=== PATIENT | female | born 2000 | race Hispanic/Latino ===

== ENCOUNTER 2018-06-20 13:09 | Emergency (ER) | payer OTHER ==
[~2018-06-20] VITALS: Ht 160 cm; Wt 81.2 kg
--- OUTSIDE RECORDS SUMMARY | 2018-06-20 13:12 | XMS REPORT | Continuity of Care Document ---
Author Author [facility] Interface Address Unknown Phone Unavailable Problems Problem Status Onset Date Classification Date Reported Comments Source CHOLEDOCHOLITHIASIS Active 07/22/2017 [facility] ABDOMINAL PAIN Active 07/22/2017 [facility] ABD PAIN Active 07/19/2017 [facility] Abdominal pain 06/19/2017 06/22/2017 [facility] Cholelithiasis 06/19/2017 06/22/2017 [facility] CALCULUS OF BILE DUCT W/O CHOLANGITIS OR Active [facility] Medications Medication Details Route Status Patient Instructions Ordering Provider Order Date Source tramadol hydrochloride 50 MG Oral Tablet 50 mg=1 tab, PO, Q6H, PRN Pain Score 6-10, X 10 day, # 30 tab, 0 Refill(s) Active 07/26/2017 [facility] POLYETHYLENE GLYCOL 3350 142 MG/ML Oral Solution [Miralax] 17 gm, PO, Daily, X 15 day, # 255 gm, 0 Refill(s) Active 07/26/2017 [facility] naproxen 500 mg oral tablet 500 mg=1 tab, PO, [id number], X 14 day, # 28 tab, 0 Refill(s) Active 07/26/2017 [facility] Docusate Sodium 100 MG Oral Capsule 100 mg=1 cap, PO, BID, # 28 cap, 0 Refill(s) Active 07/26/2017 [facility] Acetaminophen 325 MG Oral Tablet 650 mg=2 tab, PO, Q6H, X 14 day, # 112 tab, 0 Refill(s) Active 07/26/2017 [facility] PlasmaLyte A PH-7.4 1,000 mL 1,000 mL, Rate: 75 ml/hr, Infuse over: 13.3 hr, Route: IV, Dosing Weight 71.8 kg, Total Volume: 1,000, Start date: 07/26/17 7:32:00 CDT, Duration: 30 day, Stop date: 08/25/17 7:31:00 CDT, 1.81, [id number]: (Same as: Isolyte S PH 7.4) Inactive 07/26/2017 [facility] Ondansetron 4 mg, 2 mL, Route: IV, Drug form: INJ, Q4H, Dosing Weight 71.8, kg, PRN as needed for nausea/vomiting, Start date: 07/25/17 14:47:00 CDT, Duration: 30 day, Stop date: 08/24/17 14:46:00 CDTNotes: (Same a s: Lane) MEDICATION WASTE Product Size: 4 mg Product Wasted: ___ mg No Longer Active 07/25/2017 [facility] Ondansetron 4 mg, Route: IVP, ONCE, Dosing Weight 71.8, kg, PRN Nausea & Vomiting, Start date: 07/25/17 9:32:00 CDT Inactive 07/25/2017 [facility] Promethazine 6.25 mg, 0.25 mL, Route: IVPB, Drug form: INJ, ONCE, Dosing Weight 71.8, kg, PRN Nausea & Vomiting, Start date: 07/25/17 9:32:00 CDTNotes: Do not give IV push. (Same as: Phenergan) Inactive 07/25/2017 [facility] Naloxone 0.4 mg, 1 mL, Route: IVP, Drug form: INJ, Q2MIN, Dosing Weight 71.8, kg, PRN Narcotic Reversal, Start date: 07/25/17 9:32:00 CDT, Duration: 8 doses or times, Stop date: 07/26/17 0:00:00 CDTNotes: Same as Narcan Inactive 07/25/2017 [facility] Oxycodone 5 mg, 1 tab, Route: PO, Drug form: TAB, Q4H, Dosing Weight 71.8, kg, PRN Pain Score 4-6, Start date: 07/25/17 9:32:00 CDT, Stop date: 07/26/17 0:00:00 CDTNotes: (Same as: Roxicodone) Inactive 07/25/2017 [facility] Flumazenil 0.2 mg, 2 mL, Route: IVP, Drug form: INJ, PRN, Dosing Weight 71.8, kg, PRN Benzodiazepine Reversal, Initial dose, Start date: 07/25/17 9:32:00 CDT, Stop date: 07/26/17 0:00:00 CDTNotes: (Same as: Romazicon) Inactive 07/25/2017 [facility] ondansetron (ANES) Route: IV, Drug form: INJ, ONCE, Stop date: 07/25/17 9:22:00 CDT Inactive 07/25/2017 [facility] ketOROLAC (ANES) IV, ONCE Inactive 07/25/2017 [facility] glycopyrrolate (ANES) Route: IV, Drug form: INJ, ONCE, Stop date: 07/25/17 9:22:00 CDT Inactive 07/25/2017 [facility] neostigmine ([facility]) Route: IV, Drug form: INJ, ONCE, Stop date: 07/25/17 9:22:00 CDT Inactive 07/25/2017 [facility] fentaNYL (ANES) Route: IV, Drug form: INJ, ONCE, Stop date: 07/25/17 8:52:00 CDT Inactive 07/25/2017 [facility] dexamethasone (ANES) Route: IV, Drug form: INJ, ONCE, Stop date: 07/25/17 8:52:00 CDT Inactive 07/25/2017 [facility] lidocaine (ANES) Route: IV, Drug form: INJ, ONCE, Stop date: 07/25/17 8:51:00 CDT Inactive 07/25/2017 [facility] midazolam (ANES) Route: IV, Drug form: SOLN, ONCE, Stop date: 07/25/17 8:51:00 CDT Inactive 07/25/2017 [facility] rocuronium (ANES) Route: IV, Drug form: INJ, ONCE, Stop date: 07/25/17 8:51:00 CDT Inactive 07/25/2017 [facility] propofol (ANES) Route: IV, Drug form: INJ, ONCE, Stop date: 07/25/17 8:51:00 CDT Inactive 07/25/2017 [facility] ceFAZolin ([facility]) Route: IV, Drug form: INJ, ONCE, Stop date: 07/25/17 8:46:00 CDT Inactive 07/25/2017 [facility] Lactated Ringers Injection IV (ANES) 1000 mL Route: IV, Total Volume: 1,000, Start date: 07/25/17 7:43:00 CDT, Stop date: 07/25/17 8:43:00 CDT Inactive 07/25/2017 [facility] Indocin 100 mg, 2 supp, Route: NV, Drug form: SUPP, ONCE, Dosing Weight 71.8, kg, Priority: STAT, Start date: 07/24/17 11:07:00 CDT, Stop date: 07/24/17 11:07:00 CDTNotes: (Same as: Indocin) Inactive 07/24/2017 [facility] Calcium Chloride 0.0014 MEQ/ML / Potassium Chloride 0.004 MEQ/ML / Sodium Chloride 0.103 MEQ/ML / Sodium Lactate 0.028 MEQ/ML Injectable Solution 2,000 mL, 2,000 ml/hr, Infuse Over: 2 hr, Route: IV, ONCE, Priority: STAT, Dosing Weight 71.8 kg, Start date: 07/24/17 10:34:00 CDT, Stop date: 07/24/17 10:34:00 CDT Inactive 07/24/2017 [facility] Indocin 100 mg, 4 cap, Route: NV, Drug form: CAP, ONCE, Dosing Weight 71.8, kg, Priority: STAT, Start date: 07/24/17 10:34:00 CDT, Stop date: 07/24/17 10:34:00 CDTNotes: (Same as: Indocin) Take with food Inactive 07/24/2017 [facility] Calcium Chloride 0.0014 MEQ/ML / Potassium Chloride 0.004 MEQ/ML / Sodium Chloride 0.103 MEQ/ML / Sodium Lactate 0.028 MEQ/ML Injectable Solution 1,000 mL, 1000 ml/hr, Infuse Over: 1 hr, Route: IV, 1,000, Drug form: INJ, ONCE, Dosing Weight 71 kg, Start date: 07/24/17 9:59:00 CDT, Stop date: 07/24/17 9:59:00 CDT Inactive 07/24/2017 [facility] Calcium Chloride 0.0014 MEQ/ML / Potassium Chloride 0.004 MEQ/ML / Sodium Chloride 0.103 MEQ/ML / Sodium Lactate 0.028 MEQ/ML Injectable Solution 1,000 mL, 1,000 ml/hr, Infuse Over: 1 hr, Route: IV, 1,000, Drug form: INJ, ONCE, Priority: STAT, Dosing Weight 71 kg, Start date: 07/24/17 9:50:00 CDT, Stop date: 07/24/17 9:50:00 CDT Inactive 07/24/2017 [facility] Acetaminophen 650 mg, 2 tab, Route: PO, Drug form: TAB, Q4H, Dosing Weight 71.818, kg, Start date: 07/22/17 20:00:00 CDT, Duration: 30 day, Stop date: 08/21/17 16:00:00 CDTNotes: Do not exceed 4 gm/day. (Same as: Tylenol) No Longer Active 07/23/2017 [facility] Lovenox 40 mg, 0.4 mL, Route: SUB-Q, Drug form: INJ, [id number], Dosing Weight 71.818, kg, Start date: 07/22/17 20:00:00 CDT, Duration: 30 day, Stop date: 08/20/17 20:00:00 CDTNotes: (Same as: Lovenox) No Longer Active 07/23/2017 [facility] Docusate 100 mg, 1 cap, Route: PO, Drug form: CAP, BID, Dosing Weight 71.818, kg, Start date: 07/22/17 19:12:00 CDT, Duration: 30 day, Stop date: 08/21/17 17:00:00 CDTNotes: (Same as: Colace) (Do Not Crush) No Longer Active 07/23/2017 [facility] Morphine 4 mg, 1 mL, Route: IVP, Drug form: SOLN, Q4H, Dosing Weight 71.818, kg, PRN Pain Score 7-10, Start date: 07/22/17 19:06:00 CDT, Duration: 30 day, Stop date: 08/21/17 19:05:00 CDTNotes: (Same as:MORPhine Sulfate) No Longer Active 07/23/2017 [facility] Acetaminophen 650 mg, 2 tab, Route: PO, Drug form: TAB, Q4H, Dosing Weight 71.818, kg, PRN Pain 1-3/Temp > 100.4 F, Start date: 07/22/17 19:06:00 CDT, Duration: 30 day, Stop date: 08/21/17 19:05:00 CDTNotes: Do not exceed 4 gm/day. (Same as: Tylenol) Inactive 07/23/2017 [facility] Naproxen 500 mg, 1 tab, Route: PO, Drug form: TAB, [id number], Dosing Weight 71.818, kg, Start date: 07/22/17 19:06:00 CDT, Duration: 30 day, Stop date: 08/21/17 7:06:00 CDTNotes: (Same as: Naprosyn) Take with food. No Longer Active 07/23/2017 [facility] PlasmaLyte A PH-7.4 1,000 mL 1,000 mL, Rate: 75 ml/hr, Infuse over: 13.3 hr, Route: IV, Dosing Weight 71.818 kg, Total Volume: 1,000, Start date: 07/22/17 19:05:00 CDT, Stop date: 08/21/17 19:04:00 CDT, 1.81, [id number]: (Same as: Isolyte S PH 7.4) No Longer Active 07/23/2017 [facility] Cephalexin 500 MG Oral Capsule [Keflex] 500 mg=1 cap, PO, BID, X 10 day, # 20 cap, 0 Refill(s) Active 06/19/2017 [facility] Ondansetron 4 MG Oral Tablet [Zofran] 4 mg=1 tab, PO, BID, # 10 tab, 0 Refill(s) Active 06/19/2017 [facility] tramadol hydrochloride 50 MG Oral Tablet 50 mg=1 tab, PO, BID, X 12 day, # 24 tab, 0 Refill(s) Active 06/19/2017 [facility] Metoclopramide 10 mg, Route: IVP, Drug form: INJ, ONCE, Dosing Weight 71.364, kg, Priority: STAT, Start date: 06/19/17 4:09:00 CDT, Stop date: 06/19/17 4:09:00 CDT Inactive 06/19/2017 [facility] Hydromorphone 1 mg, Route: IVP, ONCE, Dosing Weight 71.364, kg, Priority: STAT, Start date: 06/19/17 4:09:00 CDT, Stop date: 06/19/17 4:09:00 CDT Inactive 06/19/2017 [facility] GI cocktail 30 mL, Route: PO, Dosing Weight 71.364, kg, ONCE, STAT, Start date: 06/19/17 2:41:00 CDT, Stop date: 06/19/17 2:41:00 CDT Inactive 06/19/2017 [facility] Acetaminophen 325 MG / Hydrocodone Bitartrate 5 MG Oral Tablet 1 tab, Route: PO, Drug Form: TAB, Dosing Weight 71.364, kg, ONCE, STAT, Start date: 06/19/17 2:41:00 CDT, Stop date: 06/19/17 2:41:00 CDT Inactive 06/19/2017 [facility] Zofran 4 mg, Route: PO, Drug form: TABDIS, ONCE, Dosing Weight 71.364, kg, Priority: STAT, Start date: 06/19/17 2:41:00 CDT, Stop date: 06/19/17 2:41:00 CDT Inactive 06/19/2017 [facility] Allergies, Adverse Reactions, Alerts Substance Category Reaction Severity Reaction type Status Date Reported Comments Source Immunizations Immunization Date Given Site Status Last Updated Comments Source Results Order Name Results Value Reference Range Date Interpretation Comments Source CHEM PANEL Albumin Lvl 3.5 g/dL 3.5 - 5.0 07/25/2017 [facility] CHEM PANEL Globulin 3.6 g/dL 2.7 - 4.2 07/25/2017 [facility] CHEM PANEL A/G Ratio 1.0 0.7 - 1.6 07/25/2017 [facility] CHEM PANEL AST 106 unit/L 0 - 37 07/25/2017 [facility] CHEM PANEL Alk Phos 307 unit/L 39 - 136 07/25/2017 [facility] CHEM PANEL Bili Total 2.5 mg/dL 0.2 - 1.3 07/25/2017 [facility] CHEM PANEL Bili Direct 1.2 mg/dL 0.0 - 0.3 07/25/2017 [facility] CHEM PANEL Bili Indirect 1.3 mg/dL 0.0 - 1.0 07/25/2017 [facility] CHEM PANEL ALT 427 unit/L 0 - 65 07/25/2017 [facility] CHEM PANEL Total Protein 7.1 g/dL 6.4 - 8.4 07/25/2017 [facility] ELECTROLYTES AGAP 10.9 meq/L 10.0 - 20.0 07/25/2017 [facility] ELECTROLYTES eGFR 144 mL/min/1.73m2 07/25/2017 Result Comment: The eGFR is calculated using the CKD-EPI formula. In most young, healthy individuals the eGFR will be >90 mL/min/1.73m2. The eGFR declines with age. An eGFR of 60-89 may be normal in some populations, particularly the elderly, for whom the CKD-EPI formula has not been extensively validated. Use of the eGFR is not recommended in the following populations: Individuals with unstable creatinine concentrations, including patients and those with serious co-morbid conditions. Patients with extremes in muscle mass or diet. The data above are obtained from the National Kidney Disease Education Program (NKDEP) which additionally recommends that when the eGFR is used in patients with extremes of body mass index for purposes of drug dosing, the eGFR should be multiplied by the estimated BMI. [facility] ELECTROLYTES Calcium Lvl 9.2 mg/dL 8.5 - 10.5 07/25/2017 [facility] ELECTROLYTES Potassium Lvl 3.9 meq/L 3.5 - 5.1 07/25/2017 [facility] ELECTROLYTES Sodium Lvl 138 meq/L 135 - 145 07/25/2017 [facility] ELECTROLYTES Creatinine Lvl 0.47 mg/dL 0.50 - 1.40 07/25/2017 [facility] ELECTROLYTES CO2 25 meq/L 24 - 32 07/25/2017 [facility] ELECTROLYTES Chloride Lvl 106 meq/L 95 - 109 07/25/2017 [facility] ELECTROLYTES BUN 9 mg/dL 7 - 22 07/25/2017 [facility] ELECTROLYTES Glucose Lvl 75 mg/dL 70 - 99 07/25/2017 [facility] HEMATOLOGY Eosinophils # 0.1 K/CMM 0.0 - 0.5 07/25/2017 [facility] HEMATOLOGY Monocytes # 0.6 K/CMM 0.0 - 0.8 07/25/2017 [facility] HEMATOLOGY Monocytes 10.1 % 2.0 - 12.0 07/25/2017 [facility] HEMATOLOGY Lymphocytes 45.5 % 20.0 - 40.0 07/25/2017 [facility] HEMATOLOGY Segs 41.8 % 45.0 - 75.0 07/25/2017 [facility] HEMATOLOGY Lymphocytes # 2.5 K/CMM 1.0 - 5.5 07/25/2017 [facility] HEMATOLOGY Segs-Bands # 2.3 K/CMM 1.5 - 8.1 07/25/2017 [facility] HEMATOLOGY Basophils 0.3 % 0.0 - 1.0 07/25/2017 [facility] HEMATOLOGY Eosinophils 2.3 % 0.0 - 4.0 07/25/2017 [facility] HEMATOLOGY MCH 26.1 pg 27.0 - 31.0 07/25/2017 [facility] HEMATOLOGY MCV 79.0 fL 80.0 - 98.0 07/25/2017 [facility] HEMATOLOGY Hct 37.3 % 36.0 - 48.0 07/25/2017 [facility] HEMATOLOGY MPV 9.9 fL 7.4 - 10.4 07/25/2017 [facility] HEMATOLOGY Hgb 12.3 g/dL 12.0 - 16.0 07/25/2017 [facility] HEMATOLOGY RBC 4.71 M/CMM 4.20 - 5.40 07/25/2017 [facility] HEMATOLOGY WBC 5.6 K/CMM 3.7 - 10.4 07/25/2017 [facility] HEMATOLOGY Platelet 246 K/CMM 133 - 450 07/25/2017 [facility] HEMATOLOGY RDW 16.0 % 11.5 - 14.5 07/25/2017 [facility] HEMATOLOGY MCHC 33.0 g/dL 32.0 - 36.0 07/25/2017 [facility] BLOOD BANK RESULTS Antibody Scrn Negative (07/24/17 5:23 AM) 07/24/2017 [facility] BLOOD BANK RESULTS ABO/Rh A POS 07/24/2017 [facility] CHEM PANEL A/G Ratio 0.8 0.7 - 1.6 07/24/2017 [facility] CHEM PANEL Globulin 3.7 g/dL 2.7 - 4.2 07/24/2017 [facility] CHEM PANEL Bili Indirect 1.8 mg/dL 0.0 - 1.0 07/24/2017 [facility] CHEM PANEL Total Protein 6.8 g/dL 6.4 - 8.4 07/24/2017 [facility] CHEM PANEL ALT 470 unit/L 0 - 65 07/24/2017 [facility] CHEM PANEL Albumin Lvl 3.1 g/dL 3.5 - 5.0 07/24/2017 [facility] CHEM PANEL Alk Phos 358 unit/L 39 - 136 07/24/2017 [facility] CHEM PANEL AST 164 unit/L 0 - 37 07/24/2017 [facility] CHEM PANEL Bili Direct 4.7 mg/dL 0.0 - 0.3 07/24/2017 [facility] CHEM PANEL Bili Total 6.5 mg/dL 0.2 - 1.3 07/24/2017 [facility] CHEM PANEL Calcium Lvl 9.2 mg/dL 8.5 - 10.5 07/24/2017 [facility] CHEM PANEL CO2 24 meq/L 24 - 32 07/24/2017 [facility] CHEM PANEL Glucose Lvl 82 mg/dL 70 - 99 07/24/2017 [facility] CHEM PANEL Sodium Lvl 141 meq/L 135 - 145 07/24/2017 [facility] CHEM PANEL Creatinine Lvl 0.48 mg/dL 0.50 - 1.40 07/24/2017 [facility] CHEM PANEL BUN 6 mg/dL 7 - 22 07/24/2017 [facility] CHEM PANEL Chloride Lvl 109 meq/L 95 - 109 07/24/2017 [facility] CHEM PANEL Potassium Lvl 4.3 meq/L 3.5 - 5.1 07/24/2017 [facility] CHEM PANEL eGFR 142 mL/min/1.73m2 07/24/2017 Result Comment: The eGFR is calculated using the CKD-EPI formula. In most young, healthy individuals the eGFR will be >90 mL/min/1.73m2. The eGFR declines with age. An eGFR of 60-89 may be normal in some populations, particularly the elderly, for whom the CKD-EPI formula has not been extensively validated. Use of the eGFR is not recommended in the following populations: Individuals with unstable creatinine concentrations, including patients and those with serious co-morbid conditions. Patients with extremes in muscle mass or diet. The data above are obtained from the National Kidney Disease Education Program (NKDEP) which additionally recommends that when the eGFR is used in patients with extremes of body mass index for purposes of drug dosing, the eGFR should be multiplied by the estimated BMI. [facility] CHEM PANEL AGAP 12.3 meq/L 10.0 - 20.0 07/24/2017 [facility] HEMATOLOGY Lymphocytes # 1.9 K/CMM 1.0 - 5.5 07/24/2017 [facility] HEMATOLOGY Monocytes # 0.7 K/CMM 0.0 - 0.8 07/24/2017 [facility] HEMATOLOGY Segs-Bands # 3.4 K/CMM 1.5 - 8.1 07/24/2017 [facility] HEMATOLOGY Eosinophils # 0.1 K/CMM 0.0 - 0.5 07/24/2017 [facility] HEMATOLOGY Microcyte 1+ *ABN* (07/24/17 5:23 AM) None Seen 07/24/2017 [facility] HEMATOLOGY Monocytes 11.8 % 2.0 - 12.0 07/24/2017 [facility] HEMATOLOGY Eosinophils 2.2 % 0.0 - 4.0 07/24/2017 [facility] HEMATOLOGY Basophils 0.2 % 0.0 - 1.0 07/24/2017 [facility] HEMATOLOGY Segs 55.3 % 45.0 - 75.0 07/24/2017 [facility] HEMATOLOGY Lymphocytes 30.5 % 20.0 - 40.0 07/24/2017 [facility] HEMATOLOGY Hct 36.4 % 36.0 - 48.0 07/24/2017 [facility] HEMATOLOGY MCH 26.3 pg 27.0 - 31.0 07/24/2017 [facility] HEMATOLOGY MCHC 33.6 g/dL 32.0 - 36.0 07/24/2017 [facility] HEMATOLOGY MCV 78.2 fL 80.0 - 98.0 07/24/2017 [facility] HEMATOLOGY RDW 15.9 % 11.5 - 14.5 07/24/2017 [facility] HEMATOLOGY WBC 6.1 K/CMM 3.7 - 10.4 07/24/2017 [facility] HEMATOLOGY RBC 4.65 M/CMM 4.20 - 5.40 07/24/2017 [facility] HEMATOLOGY Hgb 12.2 g/dL 12.0 - 16.0 07/24/2017 [facility] HEMATOLOGY MPV 9.2 fL 7.4 - 10.4 07/24/2017 [facility] HEMATOLOGY Platelet 243 K/CMM 133 - 450 07/24/2017 [facility] ERCP Diagnostic DX ERCP Diagnostic DX EXAM: FLUOROSCOPY ERCP DATE: 07/24/2017 10:55 AM CDT INDICATION: - ERCP ADDITIONAL INFORMATION: Filling defect noted in main distal bile duct. Biliary sphincterotomy was performed. Using a 9-12 mm balloon stone extractor the bile duct was swept One large stone, multiple fragments and sludge removed. No further stones/sludge removed on repeated balloon COMPARISON: Liver ultrasound 07/22/2017. TECHNIQUE: Three images where provided by gastroenterology for interpretation. FLUOROSCOPY TIME: 0.4 minutes. FINDINGS: ERCP performed by GI. Filling defects visualized within the common bile duct. IMPRESSION: 1. Balloon sweep of common bile duct to remove biliary stones. 2. Please see complete ERCP report for more details and recommendations. 07/24/2017 - - Read by: Neal Nichols MD Dictated Date/time: 07/24/17 11:32 Electronically Signed by: Neal Nichols MD 07/24/17 11:36 FINAL REPORT [facility] CHEM PANEL eGFR 144 mL/min/1.73m2 07/23/2017 Result Comment: The eGFR is calculated using the CKD-EPI formula. In most young, healthy individuals the eGFR will be >90 mL/min/1.73m2. The eGFR declines with age. An eGFR of 60-89 may be normal in some populations, particularly the elderly, for whom the CKD-EPI formula has not been extensively validated. Use of the eGFR is not recommended in the following populations: Individuals with unstable creatinine concentrations, including patients and those with serious co-morbid conditions. Patients with extremes in muscle mass or diet. The data above are obtained from the National Kidney Disease Education Program (NKDEP) which additionally recommends that when the eGFR is used in patients with extremes of body mass index for purposes of drug dosing, the eGFR should be multiplied by the estimated BMI. [facility] CHEM PANEL Chloride Lvl 108 meq/L 95 - 109 07/23/2017 [facility] CHEM PANEL BUN 9 mg/dL 7 - 22 07/23/2017 [facility] CHEM PANEL Glucose Lvl 68 mg/dL 70 - 99 07/23/2017 [facility] CHEM PANEL Calcium Lvl 8.7 mg/dL 8.5 - 10.5 07/23/2017 [facility] CHEM PANEL AGAP 16.0 meq/L 10.0 - 20.0 07/23/2017 [facility] CHEM PANEL CO2 18 meq/L 24 - 32 07/23/2017 [facility] CHEM PANEL Potassium Lvl 4.0 meq/L 3.5 - 5.1 07/23/2017 [facility] CHEM PANEL Creatinine Lvl 0.47 mg/dL 0.50 - 1.40 07/23/2017 [facility] CHEM PANEL Sodium Lvl 138 meq/L 135 - 145 07/23/2017 [facility] CHEM PANEL Lipase Lvl 112 unit/L 73 - 393 07/23/2017 [facility] CHEM PANEL Total Protein 6.7 g/dL 6.4 - 8.4 07/23/2017 [facility] CHEM PANEL AST 138 unit/L 0 - 37 07/23/2017 [facility] CHEM PANEL Alk Phos 325 unit/L 39 - 136 07/23/2017 [facility] CHEM PANEL Bili Total 5.5 mg/dL 0.2 - 1.3 07/23/2017 [facility] CHEM PANEL Albumin Lvl 3.4 g/dL 3.5 - 5.0 07/23/2017 [facility] CHEM PANEL ALT 430 unit/L 0 - 65 07/23/2017 [facility] CHEM PANEL Bili Direct 4.0 mg/dL 0.0 - 0.3 07/23/2017 [facility] CHEM PANEL Bili Indirect 1.5 mg/dL 0.0 - 1.0 07/23/2017 [facility] CHEM PANEL Globulin 3.3 g/dL 2.7 - 4.2 07/23/2017 [facility] CHEM PANEL A/G Ratio 1.0 0.7 - 1.6 07/23/2017 [facility] HEMATOLOGY MCHC 33.0 g/dL 32.0 - 36.0 07/23/2017 [facility] HEMATOLOGY MCH 25.9 pg 27.0 - 31.0 07/23/2017 [facility] HEMATOLOGY MPV 9.3 fL 7.4 - 10.4 07/23/2017 [facility] HEMATOLOGY RDW 15.7 % 11.5 - 14.5 07/23/2017 [facility] HEMATOLOGY Platelet 260 K/CMM 133 - 450 07/23/2017 [facility] HEMATOLOGY Hgb 12.6 g/dL 12.0 - 16.0 07/23/2017 [facility] HEMATOLOGY Hct 38.2 % 36.0 - 48.0 07/23/2017 [facility] HEMATOLOGY WBC 6.6 K/CMM 3.7 - 10.4 07/23/2017 [facility] HEMATOLOGY RBC 4.87 M/CMM 4.20 - 5.40 07/23/2017 [facility] HEMATOLOGY MCV 78.4 fL 80.0 - 98.0 07/23/2017 [facility] HEMATOLOGY Microcyte 1+ *ABN* (07/23/17 2:51 AM) None Seen 07/23/2017 [facility] HEMATOLOGY Eosinophils # 0.1 K/CMM 0.0 - 0.5 07/23/2017 [facility] HEMATOLOGY Monocytes # 0.7 K/CMM 0.0 - 0.8 07/23/2017 [facility] HEMATOLOGY Monocytes 11.1 % 2.0 - 12.0 07/23/2017 [facility] HEMATOLOGY Lymphocytes 35.1 % 20.0 - 40.0 07/23/2017 [facility] HEMATOLOGY Segs 51.9 % 45.0 - 75.0 07/23/2017 [facility] HEMATOLOGY Segs-Bands # 3.5 K/CMM 1.5 - 8.1 07/23/2017 [facility] HEMATOLOGY Lymphocytes # 2.3 K/CMM 1.0 - 5.5 07/23/2017 [facility] HEMATOLOGY Basophils 0.2 % 0.0 - 1.0 07/23/2017 [facility] HEMATOLOGY Eosinophils 1.7 % 0.0 - 4.0 07/23/2017 [facility] IMMUNOLOGY Hep Bs Ag Negative *NA* (07/23/17 2:51 AM) Negative 07/23/2017 [facility] IMMUNOLOGY Hep C Ab Negative *NA* (07/23/17 2:51 AM) 07/23/2017 [facility] IMMUNOLOGY Hep A IgM Negative *NA* (07/23/17 2:51 AM) Negative 07/23/2017 [facility] IMMUNOLOGY Hep B Core IgM Negative *NA* (07/23/17 2:51 AM) Negative 07/23/2017 [facility] HEMATOLOGY PT 12.7 s 12.0 - 14.7 07/22/2017 [facility] HEMATOLOGY INR 0.95 0.85 - 1.17 07/22/2017 [facility] HEMATOLOGY PTT 28.2 s 22.9 - 35.8 07/22/2017 [facility] BLOOD BANK RESULTS Antibody Scrn Negative (07/22/17 6:00 PM) 07/22/2017 [facility] BLOOD BANK RESULTS ABO/Rh A POS 07/22/2017 [facility] CHEM PANEL Lipase Lvl 149 unit/L 73 - 393 07/22/2017 [facility] HEMATOLOGY Microcyte 1+ *ABN* (07/22/17 1:50 PM) None Seen 07/22/2017 [facility] URINE AND STOOL UA Glucose Negative (07/22/17 1:50 PM) Negative 07/22/2017 [facility] URINE AND STOOL UA Protein Negative (07/22/17 1:50 PM) Negative 07/22/2017 [facility] URINE AND STOOL UA pH 7.0 5.0 - 8.0 07/22/2017 [facility] URINE AND STOOL UA Leuk Est Trace *ABN* (07/22/17 1:50 PM) Negative 07/22/2017 [facility] URINE AND STOOL UA Nitrite Negative (07/22/17 1:50 PM) Negative 07/22/2017 [facility] URINE AND STOOL UA Urobilinogen 1.0 EU/dL 0.1 - 1.0 07/22/2017 [facility] URINE AND STOOL UA Blood Moderate *ABN* (07/22/17 1:50 PM) Negative 07/22/2017 [facility] URINE AND STOOL UA Bili Large *ABN* (07/22/17 1:50 PM) Negative 07/22/2017 [facility] URINE AND STOOL UA Ketones Negative *NA* (07/22/17 1:50 PM) Negative 07/22/2017 [facility] URINE AND STOOL UA Spec Grav 1.015 <=1.030 07/22/2017 [facility] URINE AND STOOL UA Turbidity Clear (07/22/17 1:50 PM) Clear 07/22/2017 [facility] URINE AND STOOL UA Color Yellow *NA* (07/22/17 1:50 PM) Yellow 07/22/2017 [facility] URINE AND STOOL UA Mucus Many /LPF None Seen /LPF 07/22/2017 [facility] URINE AND STOOL UA WBC 6-10 /HPF None Seen /HPF 07/22/2017 [facility] URINE AND STOOL UA RBC 6-10 /HPF 0 - 2 07/22/2017 [facility] URINE AND STOOL UA Bacteria Many /HPF None Seen /HPF 07/22/2017 [facility] URINE AND STOOL Micro? Performed (07/22/17 1:50 PM) 07/22/2017 [facility] URINE AND STOOL UA Sq Epi Many /LPF Few /LPF 07/22/2017 [facility] URINE CHEM U Preg Negative (07/22/17 1:50 PM) Negative 07/22/2017 [facility] Liver US Liver US EXAM: US ABDOMEN LIMITED DATE: 07/22/2017 4:00 PM CDT INDICATION: - Jaundice, hx of cholelithiasis, concern now for choledocolithiasis ADDITIONAL INFORMATION: None. COMPARISON: 06/19/2017 TECHNIQUE: Multiplanar grayscale and color Doppler ultrasound of the right upper quadrant. FINDINGS: Liver: Craniocaudal length: 15.2 cm. Echogenicity: Normal. Surface: Normal. Mass (size and location): None. Main portal vein: Caliber: 1.1 cm. Flow: Hepatopetal. Bile ducts: Common bile duct diameter: 0.5 cm proximally, 0.7 cm distally Intrahepatic ducts: Normal. No choledocholithiasis identified. Gallbladder: Well distended. Gallstones: Multiple mobile gallstones Gallbladder sludge: None. Gallbladder wall: 0.3 cm. Pericholecystic fluid: None. Sonographic Rosales sign: Absent. Pancreas: Not seen due to overlying bowel gas. Spleen: Normal measuring about 10.8 x 3.4 x 3.9 cm. Free fluid: None. Other: None. IMPRESSION: 1. Mildly dilated distal common bile duct measuring about 0.7 cm without choledocholithiasis, new from 06/19/2017 . This can sometimes be expected in recently passed stone. Correlation with LFTs can be helpful. MRCP may be helpful for further evaluation as clinically warranted. 2. Cholelithiasis without evidence of acute cholecystitis. 07/22/2017 - - This report was dictated by a Investigative Agent/Fellow. I have personally reviewed the images as well as the Resident's interpretation and agree with the findings. Read by: Stephanie Briseno MD Resident: Stephanie Briseno MD Dictated Date/time: 07/22/17 16:58 Electronically Signed by: Neal Nichols MD 07/23/17 08:46 FINAL REPORT [facility] IMMUNOLOGY CDC HIV 4th GEN Negative *NA* (06/19/17 5:00 AM) Negative 06/19/2017 [facility] CHEM PANEL Lipase Lvl 125 unit/L 73 - 393 06/19/2017 [facility] CHEM PANEL Globulin 4.3 g/dL 2.7 - 4.2 06/19/2017 [facility] CHEM PANEL A/G Ratio 1.0 0.7 - 1.6 06/19/2017 [facility] CHEM PANEL Bili Total 0.5 mg/dL 0.2 - 1.3 06/19/2017 [facility] CHEM PANEL Alk Phos 111 unit/L 39 - 136 06/19/2017 [facility] CHEM PANEL Bili Indirect 0.4 mg/dL 0.0 - 1.0 06/19/2017 [facility] CHEM PANEL Bili Direct 0.1 mg/dL 0.0 - 0.3 06/19/2017 [facility] CHEM PANEL AST 24 unit/L 0 - 37 06/19/2017 [facility] CHEM PANEL Albumin Lvl 4.3 g/dL 3.5 - 5.0 06/19/2017 [facility] CHEM PANEL Total Protein 8.6 g/dL 6.4 - 8.4 06/19/2017 [facility] CHEM PANEL ALT 64 unit/L 0 - 65 06/19/2017 [facility] CHEM PANEL eGFR 130 mL/min/1.73m2 06/19/2017 Result Comment: The eGFR is calculated using the CKD-EPI formula. In most young, healthy individuals the eGFR will be >90 mL/min/1.73m2. The eGFR declines with age. An eGFR of 60-89 may be normal in some populations, particularly the elderly, for whom the CKD-EPI formula has not been extensively validated. Use of the eGFR is not recommended in the following populations: Individuals with unstable creatinine concentrations, including patients and those with serious co-morbid conditions. Patients with extremes in muscle mass or diet. The data above are obtained from the National Kidney Disease Education Program (NKDEP) which additionally recommends that when the eGFR is used in patients with extremes of body mass index for purposes of drug dosing, the eGFR should be multiplied by the estimated BMI. [facility] CHEM PANEL Creatinine Lvl 0.64 mg/dL 0.50 - 1.40 06/19/2017 [facility] CHEM PANEL BUN 18 mg/dL 7 - 22 06/19/2017 [facility] CHEM PANEL Glucose Lvl 95 mg/dL 70 - 99 06/19/2017 [facility] CHEM PANEL Sodium Lvl 141 meq/L 135 - 145 06/19/2017 [facility] CHEM PANEL Potassium Lvl 3.6 meq/L 3.5 - 5.1 06/19/2017 [facility] CHEM PANEL Chloride Lvl 103 meq/L 95 - 109 06/19/2017 [facility] CHEM PANEL CO2 27 meq/L 24 - 32 06/19/2017 [facility] CHEM PANEL Calcium Lvl 9.5 mg/dL 8.5 - 10.5 06/19/2017 [facility] CHEM PANEL AGAP 14.6 meq/L 10.0 - 20.0 06/19/2017 [facility] HEMATOLOGY MPV 9.0 fL 7.4 - 10.4 06/19/2017 [facility] HEMATOLOGY Platelet 344 K/CMM 133 - 450 06/19/2017 [facility] HEMATOLOGY MCHC 32.9 g/dL 32.0 - 36.0 06/19/2017 [facility] HEMATOLOGY RDW 16.1 % 11.5 - 14.5 06/19/2017 [facility] HEMATOLOGY Hct 40.4 % 36.0 - 48.0 06/19/2017 [facility] HEMATOLOGY MCV 78.3 fL 80.0 - 98.0 06/19/2017 [facility] HEMATOLOGY MCH 25.7 pg 27.0 - 31.0 06/19/2017 [facility] HEMATOLOGY RBC 5.16 M/CMM 4.20 - 5.40 06/19/2017 [facility] HEMATOLOGY Hgb 13.3 g/dL 12.0 - 16.0 06/19/2017 [facility] HEMATOLOGY WBC 11.6 K/CMM 3.7 - 10.4 06/19/2017 [facility] HEMATOLOGY Lymphocytes 32.0 % 20.0 - 40.0 06/19/2017 [facility] HEMATOLOGY Segs 60.4 % 45.0 - 75.0 06/19/2017 [facility] HEMATOLOGY Eosinophils 1.2 % 0.0 - 4.0 06/19/2017 [facility] HEMATOLOGY Monocytes 6.3 % 2.0 - 12.0 06/19/2017 [facility] HEMATOLOGY Microcyte 1+ *ABN* (06/19/17 2:50 AM) None Seen 06/19/2017 [facility] HEMATOLOGY Basophils 0.1 % 0.0 - 1.0 06/19/2017 [facility] HEMATOLOGY Segs-Bands # 7.0 K/CMM 1.5 - 8.1 06/19/2017 [facility] HEMATOLOGY Lymphocytes # 3.7 K/CMM 1.0 - 5.5 06/19/2017 [facility] HEMATOLOGY Monocytes # 0.7 K/CMM 0.0 - 0.8 06/19/2017 [facility] HEMATOLOGY Eosinophils # 0.1 K/CMM 0.0 - 0.5 06/19/2017 [facility] URINE AND STOOL UA Spec Grav 1.020 <=1.030 06/19/2017 [facility] URINE AND STOOL UA Protein Negative (06/19/17 2:35 AM) Negative 06/19/2017 [facility] URINE AND STOOL UA pH 6.5 5.0 - 8.0 06/19/2017 [facility] URINE AND STOOL UA Turbidity Slight Cloudy (06/19/17 2:35 AM) Clear 06/19/2017 [facility] URINE AND STOOL UA Color Yellow *NA* (06/19/17 2:35 AM) Yellow 06/19/2017 [facility] URINE AND STOOL UA Sq Epi Moderate /LPF Few /LPF 06/19/2017 [facility] URINE AND STOOL UA Nitrite Negative (06/19/17 2:35 AM) Negative 06/19/2017 [facility] URINE AND STOOL UA WBC 11-20 /HPF None Seen /HPF 06/19/2017 [facility] URINE AND STOOL UA Leuk Est Moderate *ABN* (06/19/17 2:35 AM) Negative 06/19/2017 [facility] URINE AND STOOL UA Glucose Negative (06/19/17 2:35 AM) Negative 06/19/2017 [facility] URINE AND STOOL UA Blood Large *ABN* (06/19/17 2:35 AM) Negative 06/19/2017 [facility] URINE AND STOOL UA Urobilinogen 0.2 EU/dL 0.1 - 1.0 06/19/2017 [facility] URINE AND STOOL UA Ketones Negative *NA* (06/19/17 2:35 AM) Negative 06/19/2017 [facility] URINE AND STOOL UA Bili Negative *NA* (06/19/17 2:35 AM) Negative 06/19/2017 [facility] URINE AND STOOL UA RBC None Seen (06/19/17 2:35 AM) 0 - 2 06/19/2017 [facility] URINE CHEM U Preg Negative (06/19/17 2:35 AM) Negative 06/19/2017 [facility] Abdomen RUQ US Abdomen RUQ US EXAM: US ABDOMEN LIMITED DATE: 06/19/2017 2:52 AM CDT INDICATION: - RUQ abdominal pain ADDITIONAL INFORMATION: None. COMPARISON: None. TECHNIQUE: Multiplanar grayscale and color Doppler ultrasound of the right upper quadrant. FINDINGS: Liver: Craniocaudal length: 13.1 cm. Normal. Echogenicity: Normal. Surface nodularity: None. Mass (size and location): None. Portal vein: Normal. Bile ducts: Common bile duct diameter: 0.29 cm. Intrahepatic ducts: Normal. Gallbladder: Gallstones: Multiple dependent gallstones seen. Gallbladder sludge: None. Gallbladder wall: 0.19 cm. Normal. Pericholecystic fluid: None. Sonographic Rosales sign: Absent. Pancreas: Head and uncinate process: Not well seen Body and tail: Not seen. Right kidney: Hydronephrosis: None. Size: 10.3 x 4.6 x 4.4 cm. Normal. Echogenicity: Normal. Mass/Stone/Cyst (size and location): None. Spleen: Spleen measures 10.6 cm in craniocaudal dimension. No focal splenic lesions. Ascites: None. IMPRESSION: 1. No acute abnormality. 2. Cholelithiasis without secondary signs of acute cholecystitis. 3. Normal common bile duct diameter at 3 mm. 06/19/2017 - - This report was dictated by a Investigative Agent/Fellow. I have personally reviewed the images as well as the Resident's interpretation and agree with the findings. Read by: Dulce Cruz MD Resident: Dulce Cruz MD Dictated Date/time: 06/19/17 03:48 Electronically Signed by: Jackie Espinal 06/19/17 11:04 FINAL REPORT [facility] Vital Signs Vital Sign Value Date Comments Source Heart Rate 54 07/26/2017 [facility] Respitory Rate 18 07/26/2017 [facility] Temperature Oral (F) 98.5 F 07/26/2017 [facility] Systolic (mm Hg) 100 07/26/2017 [facility] Diastolic (mm Hg) 52 07/26/2017 [facility] Respitory Rate 18 07/26/2017 [facility] Systolic (mm Hg) 102 07/26/2017 [facility] Diastolic (mm Hg) 64 07/26/2017 [facility] Temperature Oral (F) 98.5 F 07/26/2017 [facility] Heart Rate 60 07/26/2017 [facility] Heart Rate 57 07/26/2017 [facility] Temperature Oral (F) 98.5 F 07/26/2017 [facility] Respitory Rate 18 07/26/2017 [facility] Systolic (mm Hg) 103 07/26/2017 [facility] Diastolic (mm Hg) 64 07/26/2017 [facility] Height 160.02 cm 07/24/2017 [facility] BMI Calculated 28.04 07/24/2017 [facility] Weight 71.8 07/24/2017 [facility] Weight 71 07/24/2017 [facility] Weight 71.818 07/22/2017 [facility] Heart Rate 66 07/20/2017 [facility] Temperature Oral (F) 98.7 F 07/20/2017 [facility] Respitory Rate 17 07/20/2017 [facility] Systolic (mm Hg) 110 07/20/2017 [facility] Diastolic (mm Hg) 73 07/20/2017 [facility] Respitory Rate 16 07/20/2017 [facility] Heart Rate 80 07/20/2017 [facility] Systolic (mm Hg) 137 07/20/2017 [facility] Diastolic (mm Hg) 95 07/20/2017 [facility] Temperature Oral (F) 98.7 F 07/20/2017 [facility] Systolic (mm Hg) 103 06/19/2017 [facility] Diastolic (mm Hg) 67 06/19/2017 [facility] Temperature Oral (F) 97.5 F 06/19/2017 [facility] Heart Rate 62 06/19/2017 [facility] Respitory Rate 20 06/19/2017 [facility] Height 160.02 cm 06/19/2017 [facility] Respitory Rate 22 06/19/2017 [facility] Heart Rate 81 06/19/2017 [facility] Systolic (mm Hg) 138 06/19/2017 [facility] Diastolic (mm Hg) 79 06/19/2017 [facility] Temperature Oral (F) 97.8 F 06/19/2017 [facility] BMI Calculated 27.87 06/19/2017 [facility] Weight 71.364 06/19/2017 [facility] Encounters Location Location Details Encounter Type Encounter Number Reason For Visit Attending Provider ADM Date DC Date Status Source [facility] [id number] Manas Guerrero 06/19/2017 06/19/2017 [facility] [id number] Lyndsay Gaytan 07/19/2017 07/20/2017 [facility] [id number] Alex Dotson 07/22/2017 07/26/2017 [facility] Procedures Procedure Code Date Perfomer Comments Source
--- OUTSIDE RECORDS SUMMARY | 2018-06-20 13:12 | XMS REPORT | Summary of Care ---
Author Author [facility] Organization [facility] Address Unknown Phone Unavailable Encounter IBAN Murray(ALEKSEY) [id number] Date(s): 07/19/17 - 07/20/17 [facility] [address] [employer] provided by [facility] [place] [address]- Discharge Disposition: Left Without Being Seen Attending Physician: Lyndsay Gaytan MD Vital Signs Most recent to 1 2 oldest [Reference Range]: Temperature Oral 98.7 DegF 98.7 DegF [96.4-99.1 DegF] (07/19/17 10:59 PM) (07/19/17 7:10 PM) Blood Pressure 110/73 mmHg 137/95 mmHg [90-140/60-90 mmHg] (07/19/17 10:59 PM) (07/19/17 7:10 PM) Respiratory Rate 17 BRMIN 16 BRMIN [14-20 BRMIN] (07/19/17 10:59 PM) (07/19/17 7:10 PM) Peripheral Pulse 66 bpm 80 bpm Rate [60-100 bpm] (07/19/17 10:59 PM) (07/19/17 7:10 PM) Problem List No data available for this section Allergies, Adverse Reactions, Alerts Substance Reaction Severity Status NKDA Active Medications No data available for this section Results No data available for this section Immunizations No data available for this section Procedures No data available for this section Social History Social History Type Response Substance Abuse Use: None. Alcohol Never Smoking Status Never smoker; Concerns about tobacco use in household: No; Exposure to Tobacco Smoke None; Cigarette Smoking Last 365 Days No; Reg Smoking Cessation Counseling No entered on: 07/22/17 Assessment and Plan No data available for this section
--- OUTSIDE RECORDS SUMMARY | 2018-06-20 13:12 | XMS REPORT | Summary of Care ---
Author Author [facility] Organization [facility] Address Unknown Phone Unavailable Encounter IBAN Murray(ALEKSEY) [id number] Date(s): 06/19/17 - 06/19/17 [facility] [address] [employer] provided by [facility] [place] [address]- Encounter Diagnosis Abdominal pain (Discharge Diagnosis) - 06/19/17 Cholelithiasis (Discharge Diagnosis) - 06/19/17 Discharge Disposition: Home or Self Care Attending Physician: Manas Guerrero MD Vital Signs Most recent to 1 2 oldest [Reference Range]: Height 160.02 cm (06/19/17 2:06 AM) Temperature Oral 97.5 DegF 97.8 DegF [96.4-99.1 DegF] (06/19/17 5:18 AM) (06/19/17 2:06 AM) Blood Pressure 103/67 mmHg 138/79 mmHg [90-140/60-90 mmHg] (06/19/17 5:18 AM) (06/19/17 2:06 AM) Respiratory Rate 20 BRMIN 22 BRMIN [14-20 BRMIN] (06/19/17 5:18 AM) *HI* (06/19/17 2:06 AM) Peripheral Pulse 62 bpm 81 bpm Rate [60-100 bpm] (06/19/17 5:18 AM) (06/19/17 2:06 AM) Weight 71.364 kg (06/19/17 2:06 AM) Body Mass Index 27.87 m2 (06/19/17 2:06 AM) Problem List No data available for this section Allergies, Adverse Reactions, Alerts Substance Reaction Severity Status NKDA Active Medications acetaminophen-hydrocodone 325 mg-5 mg oral tablet 1 tab, Route: PO, Drug Form: TAB, Dosing Weight 71.364, kg, ONCE, STAT, Start da te: 05/07/18 2:41:00 CDT, Stop date: 06/19/17 2:41:00 CDT Start Date: 06/19/17 Stop Date: 06/19/17 Status: Completed GI cocktail 30 mL, Route: PO, Dosing Weight 71.364, kg, ONCE, STAT, Start date: 06/19/17 2:4 1:00 CDT, Stop date: 06/19/17 2:41:00 CDT Start Date: 06/19/17 Stop Date: 06/19/17 Status: Completed hydromorphone 1 mg, Route: IVP, ONCE, Dosing Weight 71.364, kg, Priority: STAT, Start date: 4:09:00 CDT, Stop date: 06/19/17 4:09:00 CDT Start Date: 06/19/17 Stop Date: 06/19/17 Status: Discontinued Keflex 500 mg oral capsule 500 mg=1 cap, PO, BID, X 10 day, # 20 cap, 0 Refill(s) Start Date: 06/19/17 Stop Date: 06/29/17 Status: Ordered metoclopramide 10 mg, Route: IVP, Drug form: INJ, ONCE, Dosing Weight 71.364, kg, Priority: STA T, Start date: 06/19/17 4:09:00 CDT, Stop date: 06/19/17 4:09:00 CDT Start Date: 06/19/17 Stop Date: 06/19/17 Status: Completed tramadol 50 mg oral tablet 50 mg=1 tab, PO, BID, X 12 day, # 24 tab, 0 Refill(s) Start Date: 06/19/17 Stop Date: 07/01/17 Status: Ordered Zofran 4 mg, Route: PO, Drug form: TABDIS, ONCE, Dosing Weight 71.364, kg, Priority: ST AT, Start date: 06/19/17 2:41:00 CDT, Stop date: 06/19/17 2:41:00 CDT Start Date: 06/19/17 Stop Date: 06/19/17 Status: Completed Zofran 4 mg oral tablet 4 mg=1 tab, PO, BID, # 10 tab, 0 Refill(s) Start Date: 06/19/17 Stop Date: 06/24/17 Status: Ordered Results ELECTROLYTES Most recent to 1 oldest [Reference Range]: Sodium Lvl [135-145 141 mEq/L mEq/L] (06/19/17 2:50 AM) Potassium Lvl 3.6 mEq/L [3.5-5.1 mEq/L] (06/19/17 2:50 AM) Chloride Lvl [95-109 103 mEq/L mEq/L] (06/19/17 2:50 AM) CO2 [24-32 mEq/L] 27 mEq/L (06/19/17 2:50 AM) AGAP [10.0-20.0 14.6 mEq/L mEq/L] (06/19/17 2:50 AM) CHEM PANEL Most recent to 1 oldest [Reference Range]: Creatinine Lvl 0.64 mg/dL [0.50-1.40 mg/dL] (06/19/17 2:50 AM) eGFR 130 mL/min/1.73m2 1 *NA* (06/19/17 2:50 AM) BUN [7-22 mg/dL] 18 mg/dL (06/19/17 2:50 AM) Glucose Lvl [70-99 95 mg/dL mg/dL] (06/19/17 2:50 AM) Total Protein 8.6 g/dL [6.4-8.4 g/dL] *HI* (06/19/17 2:50 AM) Albumin Lvl [3.5-5.0 4.3 g/dL g/dL] (06/19/17 2:50 AM) Globulin [2.7-4.2 4.3 g/dL g/dL] *HI* (06/19/17 2:50 AM) A/G Ratio [0.7-1.6] 1.0 (06/19/17 2:50 AM) Calcium Lvl 9.5 mg/dL [8.5-10.5 mg/dL] (06/19/17 2:50 AM) ALT [0-65 unit/L] 64 unit/L (06/19/17 2:50 AM) AST [0-37 unit/L] 24 unit/L (06/19/17 2:50 AM) Alk Phos [39-136 111 unit/L unit/L] (06/19/17 2:50 AM) Bili Total [0.2-1.3 0.5 mg/dL mg/dL] (06/19/17 2:50 AM) Bili Direct [0.0-0.3 0.1 mg/dL mg/dL] (06/19/17 2:50 AM) Bili Indirect 0.4 mg/dL [0.0-1.0 mg/dL] (06/19/17 2:50 AM) Lipase Lvl [73-393 125 unit/L unit/L] (06/19/17 2:50 AM) 1Result Comment: The eGFR is calculated using the [...] from the National Kidney Disease Education Program ( NKDEP) which additionally recommends that when the eGFR is used in patients with extremes of body mass index for purposes of drug dosing, the eGFR should be mul tiplied by the estimated BMI. URINE CHEM Most recent to 1 oldest [Reference Range]: U Preg [Negative] Negative (06/19/17 2:35 AM) URINE AND STOOL Most recent to 1 oldest [Reference Range]: UA Turbidity [Clear] Slight Cloudy (06/19/17 2:35 AM) UA Color [Yellow] Yellow *NA* (06/19/17 2:35 AM) UA pH [5.0-8.0] 6.5 (06/19/17 2:35 AM) UA Spec Grav 1.020 [<=1.030] (06/19/17 2:35 AM) UA Glucose Negative [Negative] (06/19/17 2:35 AM) UA Blood [Negative] Large *ABN* (06/19/17 2:35 AM) UA Ketones Negative [Negative] *NA* (06/19/17 2:35 AM) UA Protein Negative [Negative] (06/19/17 2:35 AM) UA Urobilinogen 0.2 EU/dL [0.1-1.0 EU/dL] (06/19/17 2:35 AM) UA Bili [Negative] Negative *NA* (06/19/17 2:35 AM) UA Leuk Est Moderate [Negative] *ABN* (06/19/17 2:35 AM) UA Nitrite Negative [Negative] (06/19/17 2:35 AM) UA WBC [None Seen 11-20 /HPF /HPF] *ABN* (06/19/17 2:35 AM) UA RBC [0-2] None Seen (06/19/17 2:35 AM) UA Sq Epi [Few /LPF] Moderate /LPF *ABN* (06/19/17 2:35 AM) IMMUNOLOGY Most recent to 1 oldest [Reference Range]: CDC HIV 4th GEN Negative [Negative] *NA* (06/19/17 5:00 AM) HEMATOLOGY Most recent to 1 oldest [Reference Range]: WBC [3.7-10.4 K/CMM] 11.6 K/CMM *HI* (06/19/17 2:50 AM) RBC [4.20-5.40 5.16 M/CMM M/CMM] (06/19/17 2:50 AM) Hgb [12.0-16.0 g/dL] 13.3 g/dL (06/19/17 2:50 AM) Hct [36.0-48.0 %] 40.4 % (06/19/17 2:50 AM) MCV [80.0-98.0 fL] 78.3 fL *LOW* (06/19/17 2:50 AM) MCH [27.0-31.0 pg] 25.7 pg *LOW* (06/19/17 2:50 AM) MCHC [32.0-36.0 32.9 g/dL g/dL] (06/19/17 2:50 AM) RDW [11.5-14.5 %] 16.1 % *HI* (06/19/17 2:50 AM) MPV [7.4-10.4 fL] 9.0 fL (06/19/17 2:50 AM) Platelet [133-450 344 K/CMM K/CMM] (06/19/17 2:50 AM) Segs [45.0-75.0 %] 60.4 % (06/19/17 2:50 AM) Lymphocytes 32.0 % [20.0-40.0 %] (06/19/17 2:50 AM) Monocytes [2.0-12.0 6.3 % %] (06/19/17 2:50 AM) Eosinophils [0.0-4.0 1.2 % %] (06/19/17 2:50 AM) Basophils [0.0-1.0 0.1 % %] (06/19/17 2:50 AM) Segs-Bands # 7.0 K/CMM [1.5-8.1 K/CMM] (06/19/17 2:50 AM) Lymphocytes # 3.7 K/CMM [1.0-5.5 K/CMM] (06/19/17 2:50 AM) Monocytes # [0.0-0.8 0.7 K/CMM K/CMM] (06/19/17 2:50 AM) Eosinophils # 0.1 K/CMM [0.0-0.5 K/CMM] (06/19/17 2:50 AM) Microcyte [None 1+ Seen] *ABN* (06/19/17 2:50 AM) Immunizations No data available for this section Procedures No data available for this section Social History Social History Type Response Smoking Status Never smoker; Concerns about tobacco use in household: No; Exposure to Tobacco Smoke None; Cigarette Smoking Last 365 Days No; Reg Smoking Cessation Counseling No entered on: 06/19/17 Assessment and Plan No data available for this section
--- OUTSIDE RECORDS SUMMARY | 2018-06-20 13:12 | XMS REPORT | Summary of Care ---
Author Author [facility] Organization [facility] Address Unknown Phone Unavailable Encounter IBAN Murray(ALEKSEY) [id number] Date(s): 07/22/17 - 07/26/17 [facility] [address] [employer] provided by [facility] [employer] [facility] [place] [address]- Discharge Disposition: Home or Self Care Attending Physician: Alex Dotson MD Admitting Physician: Alex Dotson MD Vital Signs 1 2 3 Most recent to oldest [Reference Range]: 160.02 cm (07/24/17 9:59 AM) Height 98.5 DegF (07/26/17 11:52 AM) 98.5 DegF (07/26/17 7:56 AM) 98.5 DegF (07/26/17 5:04 AM) Temperature Oral [96.4-99.1 DegF] 100/52 mmHg (07/26/17 11:52 AM) 102/64 mmHg (07/26/17 7:56 AM) 103/64 mmHg (07/26/17 5:04 AM) Blood Pressure [90-140/60-90 mmHg] 18 BRMIN (07/26/17 11:52 AM) 18 BRMIN (07/26/17 7:56 AM) 18 BRMIN (07/26/17 5:04 AM) Respiratory Rate [14-20 BRMIN] 54 bpm *LOW* (07/26/17 11:52 AM) 60 bpm (07/26/17 7:56 AM) 57 bpm *LOW* (07/26/17 5:04 AM) Peripheral Pulse Rate [60-100 bpm] 71.8 kg (07/24/17 9:59 AM) 71 kg (07/24/17 5:10 AM) 71.818 kg (07/22/17 1:36 PM) Weight 28.04 m2 (07/24/17 9:59 AM) Body Mass Index Problem List No data available for this section Allergies, Adverse Reactions, Alerts Substance Reaction Severity Status NKDA Active Medications acetaminophen 650 mg, 2 tab, Route: PO, Drug form: TAB, Q4H, Dosing Weight 71.818, kg, PRN Karen n 1-3/Temp > 100.4 F, Start date: 07/22/17 19:06:00 CDT, Duration: 30 day, Stop date: 08/21/17 19:05:00 CDT Notes: Do not exceed 4 gm/day. (Same as: Tylenol) Start Date: 07/22/17 Stop Date: 07/22/17 Status: Discontinued acetaminophen 650 mg, 2 tab, Route: PO, Drug form: TAB, Q4H, Dosing Weight 71.818, kg, Start d ate: 07/22/17 20:00:00 CDT, Duration: 30 day, Stop date: 08/21/17 16:00:00 CDT Notes: Do not exceed 4 gm/day. (Same as: Tylenol) Start Date: 07/22/17 Stop Date: 07/26/17 Status: Discontinued acetaminophen 325 mg oral tablet 650 mg=2 tab, PO, Q6H, X 14 day, # 112 tab, 0 Refill(s) Start Date: 07/26/17 Stop Date: 08/09/17 Status: Ordered ANES flumazenil 0.2 mg, 2 mL, Route: IVP, Drug form: INJ, PRN, Dosing Weight 71.8, kg, PRN Benzo diazepine Reversal, Initial dose, Start date: 07/25/17 9:32:00 CDT, Stop date: 0 07/26/17 0:00:00 CDT Notes: (Same as: Romazicon) Start Date: 07/25/17 Stop Date: 07/25/17 Status: Discontinued ANES naloxone 0.4 mg, 1 mL, Route: IVP, Drug form: INJ, Q2MIN, Dosing Weight 71.8, kg, PRN Keegan cotic Reversal, Start date: 07/25/17 9:32:00 CDT, Duration: 8 doses or times, St op date: 07/26/17 0:00:00 CDT Notes: Same as Narcan Start Date: 07/25/17 Stop Date: 07/25/17 Status: Discontinued ANES ondansetron 4 mg, Route: IVP, ONCE, Dosing Weight 71.8, kg, PRN Nausea & Vomiting, Start date: 07/25/17 9:32:00 CDT Start Date: 07/25/17 Stop Date: 07/25/17 Status: Completed ANES oxyCODONE 5 mg, 1 tab, Route: PO, Drug form: TAB, Q4H, Dosing Weight 71.8, kg, PRN Pain Sc ore 4-6, Start date: 07/25/17 9:32:00 CDT, Stop date: 07/26/17 0:00:00 CDT Notes: (Same as: Roxicodone) Start Date: 07/25/17 Stop Date: 07/25/17 Status: Discontinued ANES oxyCODONE 10 mg, 2 tab, Route: PO, Drug form: TAB, Q4H, Dosing Weight 71.8, kg, PRN Pain S core 7-10, Start date: 07/25/17 9:32:00 CDT, Stop date: 07/26/17 0:00:00 CDT Notes: (Same as: Roxicodone) Start Date: 07/25/17 Stop Date: 07/25/17 Status: Discontinued ANES promethazine 6.25 mg, 0.25 mL, Route: IVPB, Drug form: INJ, ONCE, Dosing Weight 71.8, kg, PRN Nausea & Vomiting, Start date: 07/25/17 9:32:00 CDT Notes: Do not give IV push. (Same as: Phenergan) Start Date: 07/25/17 Stop Date: 07/25/17 Status: Discontinued ceFAZolin (ANES) Route: IV, Drug form: INJ, ONCE, Stop date: 07/25/17 8:46:00 CDT Start Date: 07/25/17 Stop Date: 07/25/17 Status: Completed dexamethasone (ANES) Route: IV, Drug form: INJ, ONCE, Stop date: 07/25/17 8:52:00 CDT Start Date: 07/25/17 Stop Date: 07/25/17 Status: Completed docusate 100 mg, 1 cap, Route: PO, Drug form: CAP, BID, Dosing Weight 71.818, kg, Start d ate: 07/22/17 19:12:00 CDT, Duration: 30 day, Stop date: 08/21/17 17:00:00 CDT Notes: (Same as: Colace) (Do Not Crush) Start Date: 07/22/17 Stop Date: 07/26/17 Status: Discontinued docusate sodium 100 mg oral capsule 100 mg=1 cap, PO, BID, # 28 cap, 0 Refill(s) Start Date: 07/26/17 Stop Date: 08/09/17 Status: Ordered fentaNYL (ANES) Route: IV, Drug form: INJ, ONCE, Stop date: 07/25/17 8:52:00 CDT Start Date: 07/25/17 Stop Date: 07/25/17 Status: Completed glycopyrrolate (ANES) Route: IV, Drug form: INJ, ONCE, Stop date: 07/25/17 9:22:00 CDT Start Date: 07/25/17 Stop Date: 07/25/17 Status: Completed Indocin 100 mg, 2 supp, Route: VT, Drug form: SUPP, ONCE, Dosing Weight 71.8, kg, Priori ty: STAT, Start date: 07/24/17 11:07:00 CDT, Stop date: 07/24/17 11:07:00 CDT Notes: (Same as: Indocin) Start Date: 07/24/17 Stop Date: 07/24/17 Status: Completed Indocin 100 mg, 4 cap, Route: VT, Drug form: CAP, ONCE, Dosing Weight 71.8, kg, Priority : STAT, Start date: 07/24/17 10:34:00 CDT, Stop date: 07/24/17 10:34:00 CDT Notes: (Same as: Indocin) Take with food Start Date: 07/24/17 Stop Date: 07/24/17 Status: Deleted ketOROLAC (ANES) IV, ONCE Start Date: 07/25/17 Stop Date: 07/25/17 Status: Completed Lactated Ringers (Bolus) IV 1,000 mL, 1,000 ml/hr, Infuse Over: 1 hr, Route: IV, 1,000, Drug form: INJ, ONCE , Priority: STAT, Dosing Weight 71 kg, Start date: 07/24/17 9:50:00 CDT, Stop da te: 07/24/17 9:50:00 CDT Start Date: 07/24/17 Stop Date: 07/24/17 Status: Completed Lactated Ringers (Bolus) IV 2,000 mL, 2,000 ml/hr, Infuse Over: 2 hr, Route: IV, ONCE, Priority: STAT, Dosin g Weight 71.8 kg, Start date: 07/24/17 10:34:00 CDT, Stop date: 07/24/17 10:34:0 0 CDT Start Date: 07/24/17 Stop Date: 07/24/17 Status: Deleted Lactated Ringers (Bolus) IV 1,000 mL, 1000 ml/hr, Infuse Over: 1 hr, Route: IV, 1,000, Drug form: INJ, ONCE, Dosing Weight 71 kg, Start date: 07/24/17 9:59:00 CDT, Stop date: 07/24/17 9:59 :00 CDT Start Date: 07/24/17 Stop Date: 07/24/17 Status: Completed Lactated Ringers Injection IV (ANES) 1000 mL Route: IV, Total Volume: 1,000, Start date: 07/25/17 7:43:00 CDT, Stop date: 01/30 8:43:00 CDT Start Date: 07/25/17 Stop Date: 07/25/17 Status: Completed lidocaine (ANES) Route: IV, Drug form: INJ, ONCE, Stop date: 07/25/17 8:51:00 CDT Start Date: 07/25/17 Stop Date: 07/25/17 Status: Completed Lovenox 40 mg, 0.4 mL, Route: SUB-Q, Drug form: INJ, [id number], Dosing Weight 71.818, kg, Start date: 07/22/17 20:00:00 CDT, Duration: 30 day, Stop date: 08/20/17 20:00: 00 CDT Notes: (Same as: Lovenox) Start Date: 07/22/17 Stop Date: 07/26/17 Status: Discontinued midazolam (ANES) Route: IV, Drug form: SOLN, ONCE, Stop date: 07/25/17 8:51:00 CDT Start Date: 07/25/17 Stop Date: 07/25/17 Status: Completed MiraLax oral powder for reconstitution 17 gm, PO, Daily, X 15 day, # 255 gm, 0 Refill(s) Start Date: 07/26/17 Stop Date: 08/10/17 Status: Ordered morphine Sulfate 4 mg, 1 mL, Route: IVP, Drug form: SOLN, Q4H, Dosing Weight 71.818, kg, PRN Pain Score 7-10, Start date: 07/22/17 19:06:00 CDT, Duration: 30 day, Stop date: 10/31 19:05:00 CDT Notes: (Same as:MORPhine Sulfate) Start Date: 07/22/17 Stop Date: 07/26/17 Status: Discontinued naproxen 500 mg, 1 tab, Route: PO, Drug form: TAB, [id number], Dosing Weight 71.818, kg, Sta rt date: 07/22/17 19:06:00 CDT, Duration: 30 day, Stop date: 08/21/17 7:06:00 CD T Notes: (Same as: Naprosyn) Take with food. Start Date: 07/22/17 Stop Date: 07/26/17 Status: Discontinued naproxen 500 mg oral tablet 500 mg=1 tab, PO, [id number], X 14 day, # 28 tab, 0 Refill(s) Start Date: 07/26/17 Stop Date: 08/09/17 Status: Ordered neostigmine (ANES) Route: IV, Drug form: INJ, ONCE, Stop date: 07/25/17 9:22:00 CDT Start Date: 07/25/17 Stop Date: 07/25/17 Status: Completed ondansetron 4 mg, 2 mL, Route: IV, Drug form: INJ, Q4H, Dosing Weight 71.8, kg, PRN as neede d for nausea/vomiting, Start date: 07/25/17 14:47:00 CDT, Duration: 30 day, Stop date: 08/24/17 14:46:00 CDT Notes: (Same as: Zofran) MEDICATION WASTE Product Size: 4 mgProduct Was joanne: ___ mg Start Date: 07/25/17 Stop Date: 07/26/17 Status: Discontinued ondansetron 4 mg, 2 mL, Route: IVP, Drug form: INJ, ONCE, Dosing Weight 71.8, kg, Start date : 07/25/17 14:47:00 CDT, Stop date: 07/25/17 14:47:00 CDT Notes: (Same as: Lane) MEDICATION WASTE Product Size: 4 mgProduct Was joanne: ___ mg Start Date: 07/25/17 Stop Date: 07/25/17 Status: Completed ondansetron (ANES) Route: IV, Drug form: INJ, ONCE, Stop date: 07/25/17 9:22:00 CDT Start Date: 07/25/17 Stop Date: 07/25/17 Status: Completed PlasmaLyte A PH-7.4 1,000 mL 1,000 mL, Rate: 75 ml/hr, Infuse over: 13.3 hr, Route: IV, Dosing Weight 71.8 kg , Total Volume: 1,000, Start date: 07/26/17 7:32:00 CDT, Duration: 30 day, Stop date: 08/25/17 7:31:00 CDT, 1.81, m2 Notes: (Same as: Isolyte S PH 7.4) Start Date: 07/26/17 Stop Date: 07/26/17 Status: Discontinued PlasmaLyte A PH-7.4 1,000 mL 1,000 mL, Rate: 75 ml/hr, Infuse over: 13.3 hr, Route: IV, Dosing Weight 71.818 kg, Total Volume: 1,000, Start date: 07/22/17 19:05:00 CDT, Stop date: 08/21/17 19:04:00 CDT, 1.81, m2 Notes: (Same as: Isolyte S PH 7.4) Start Date: 07/22/17 Stop Date: 07/26/17 Status: Discontinued propofol (ANES) Route: IV, Drug form: INJ, ONCE, Stop date: 07/25/17 8:51:00 CDT Start Date: 07/25/17 Stop Date: 07/25/17 Status: Completed rocuronium (ANES) Route: IV, Drug form: INJ, ONCE, Stop date: 07/25/17 8:51:00 CDT Start Date: 07/25/17 Stop Date: 07/25/17 Status: Completed tramadol 50 mg oral tablet 50 mg=1 tab, PO, Q6H, PRN Pain Score 6-10, X 10 day, # 30 tab, 0 Refill(s) Start Date: 07/26/17 Stop Date: 08/05/17 Status: Ordered Results BLOOD BANK RESULTS 1 2 3 Most recent to oldest [Reference Range]: A POS *Unknown* (07/24/17 5:23 AM) A POS *Unknown* (07/22/17 6:00 PM) ABO/Rh Negative (07/24/17 5:23 AM) Negative (07/22/17 6:00 PM) Antibody Scrn ELECTROLYTES 1 2 3 Most recent to oldest [Reference Range]: 138 mEq/L (07/25/17 3:46 AM) 141 mEq/L (07/24/17 5:23 AM) 138 mEq/L (07/23/17 2:51 AM) Sodium Lvl [135-145 mEq/L] 3.9 mEq/L (07/25/17 3:46 AM) 4.3 mEq/L (07/24/17 5:23 AM) 4.0 mEq/L (07/23/17 2:51 AM) Potassium Lvl [3.5-5.1 mEq/L] 106 mEq/L (07/25/17 3:46 AM) 109 mEq/L (07/24/17 5:23 AM) 108 mEq/L (07/23/17 2:51 AM) Chloride Lvl [95-109 mEq/L] 25 mEq/L (07/25/17 3:46 AM) 24 mEq/L (07/24/17 5:23 AM) 18 mEq/L *LOW* (07/23/17 2:51 AM) CO2 [24-32 mEq/L] 10.9 mEq/L (07/25/17 3:46 AM) 12.3 mEq/L (07/24/17 5:23 AM) 16.0 mEq/L (07/23/17 2:51 AM) AGAP [10.0-20.0 mEq/L] CHEM PANEL 1 2 3 Most recent to oldest [Reference Range]: 0.47 mg/dL *LOW* (07/25/17 3:46 AM) 0.48 mg/dL *LOW* (07/24/17 5:23 AM) 0.47 mg/dL *LOW* (07/23/17 2:51 AM) Creatinine Lvl [0.50-1.40 mg/dL] 144 mL/min/1.73m2 1 *NA* (07/25/17 3:46 AM) 142 mL/min/1.73m2 2 *NA* (07/24/17 5:23 AM) 144 mL/min/1.73m2 3 *NA* (07/23/17 2:51 AM) eGFR 9 mg/dL (07/25/17 3:46 AM) 6 mg/dL *LOW* (07/24/17 5:23 AM) 9 mg/dL (07/23/17 2:51 AM) BUN [7-22 mg/dL] 75 mg/dL (07/25/17 3:46 AM) 82 mg/dL (07/24/17 5:23 AM) 68 mg/dL *LOW* (07/23/17 2:51 AM) Glucose Lvl [70-99 mg/dL] 7.1 g/dL (07/25/17 3:46 AM) 6.8 g/dL (07/24/17 5:23 AM) 6.7 g/dL (07/23/17 2:51 AM) Total Protein [6.4-8.4 g/dL] 3.5 g/dL (07/25/17 3:46 AM) 3.1 g/dL *LOW* (07/24/17 5:23 AM) 3.4 g/dL *LOW* (07/23/17 2:51 AM) Albumin Lvl [3.5-5.0 g/dL] 3.6 g/dL (07/25/17 3:46 AM) 3.7 g/dL (07/24/17 5:23 AM) 3.3 g/dL (07/23/17 2:51 AM) Globulin [2.7-4.2 g/dL] 1.0 (07/25/17 3:46 AM) 0.8 (07/24/17 5:23 AM) 1.0 (07/23/17 2:51 AM) A/G Ratio [0.7-1.6] 9.2 mg/dL (07/25/17 3:46 AM) 9.2 mg/dL (07/24/17 5:23 AM) 8.7 mg/dL (07/23/17 2:51 AM) Calcium Lvl [8.5-10.5 mg/dL] 427 unit/L *HI* (07/25/17 3:46 AM) 470 unit/L *HI* (07/24/17 5:23 AM) 430 unit/L *HI* (07/23/17 2:51 AM) ALT [0-65 unit/L] 106 unit/L *HI* (07/25/17 3:46 AM) 164 unit/L *HI* (07/24/17 5:23 AM) 138 unit/L *HI* (07/23/17 2:51 AM) AST [0-37 unit/L] 307 unit/L *HI* (07/25/17 3:46 AM) 358 unit/L *HI* (07/24/17 5:23 AM) 325 unit/L *HI* (07/23/17 2:51 AM) Alk Phos [39-136 unit/L] 2.5 mg/dL *HI* (07/25/17 3:46 AM) 6.5 mg/dL *HI* (07/24/17 5:23 AM) 5.5 mg/dL *HI* (07/23/17 2:51 AM) Bili Total [0.2-1.3 mg/dL] 1.2 mg/dL *HI* (07/25/17 3:46 AM) 4.7 mg/dL *HI* (07/24/17 5:23 AM) 4.0 mg/dL *HI* (07/23/17 2:51 AM) Bili Direct [0.0-0.3 mg/dL] 1.3 mg/dL *HI* (07/25/17 3:46 AM) 1.8 mg/dL *HI* (07/24/17 5:23 AM) 1.5 mg/dL *HI* (07/23/17 2:51 AM) Bili Indirect [0.0-1.0 mg/dL] 112 unit/L (07/23/17 2:51 AM) 149 unit/L (07/22/17 1:50 PM) Lipase Lvl [73-393 unit/L] 1Result Comment: The eGFR is calculated using [...] be mul tiplied by the estimated BMI. 2Result Comment: The eGFR is calculated using the [...] be mul tiplied by the estimated BMI. 3Result Comment: The eGFR is calculated using the [...] tiplied by the estimated BMI. URINE CHEM 1 2 3 Most recent to oldest [Reference Range]: Negative (07/22/17 1:50 PM) U Preg [Negative] URINE AND STOOL 1 2 3 Most recent to oldest [Reference Range]: Clear (07/22/17 1:50 PM) UA Turbidity [Clear] Yellow *NA* (07/22/17 1:50 PM) UA Color [Yellow] 7.0 (07/22/17 1:50 PM) UA pH [5.0-8.0] 1.015 (07/22/17 1:50 PM) UA Spec Grav [<=1.030] Negative (07/22/17 1:50 PM) UA Glucose [Negative] Moderate *ABN* (07/22/17 1:50 PM) UA Blood [Negative] Negative *NA* (07/22/17 1:50 PM) UA Ketones [Negative] Negative (07/22/17 1:50 PM) UA Protein [Negative] 1.0 EU/dL (07/22/17 1:50 PM) UA Urobilinogen [0.1-1.0 EU/dL] Large *ABN* (07/22/17 1:50 PM) UA Bili [Negative] Trace *ABN* (07/22/17 1:50 PM) UA Leuk Est [Negative] Negative (07/22/17 1:50 PM) UA Nitrite [Negative] 6-10 /HPF *ABN* (07/22/17 1:50 PM) UA WBC [None Seen /HPF] 6-10 /HPF *ABN* (07/22/17 1:50 PM) UA RBC [0-2 /HPF] Many /HPF (07/22/17 1:50 PM) UA Bacteria [None Seen /HPF] Many /LPF *ABN* (07/22/17 1:50 PM) UA Sq Epi [Few /LPF] Many /LPF *ABN* (07/22/17 1:50 PM) UA Mucus [None Seen /LPF] Performed (07/22/17 1:50 PM) Micro? IMMUNOLOGY 1 2 3 Most recent to oldest [Reference Range]: Negative *NA* (07/23/17 2:51 AM) Hep Bs Ag [Negative] Negative *NA* (07/23/17 2:51 AM) Hep B Core IgM [Negative] Negative *NA* (07/23/17 2:51 AM) Hep A IgM [Negative] Negative *NA* (07/23/17 2:51 AM) Hep C Ab HEMATOLOGY 1 2 3 Most recent to oldest [Reference Range]: 5.6 K/CMM (07/25/17 3:46 AM) 6.1 K/CMM (07/24/17 5:23 AM) 6.6 K/CMM (07/23/17 2:51 AM) WBC [3.7-10.4 K/CMM] 4.71 M/CMM (07/25/17 3:46 AM) 4.65 M/CMM (07/24/17 5:23 AM) 4.87 M/CMM (07/23/17 2:51 AM) RBC [4.20-5.40 M/CMM] 12.3 g/dL (07/25/17 3:46 AM) 12.2 g/dL (07/24/17 5:23 AM) 12.6 g/dL (07/23/17 2:51 AM) Hgb [12.0-16.0 g/dL] 37.3 % (07/25/17 3:46 AM) 36.4 % (07/24/17 5:23 AM) 38.2 % (07/23/17 2:51 AM) Hct [36.0-48.0 %] 79.0 fL *LOW* (07/25/17 3:46 AM) 78.2 fL *LOW* (07/24/17 5:23 AM) 78.4 fL *LOW* (07/23/17 2:51 AM) MCV [80.0-98.0 fL] 26.1 pg *LOW* (07/25/17 3:46 AM) 26.3 pg *LOW* (07/24/17 5:23 AM) 25.9 pg *LOW* (07/23/17 2:51 AM) MCH [27.0-31.0 pg] 33.0 g/dL (07/25/17 3:46 AM) 33.6 g/dL (07/24/17 5:23 AM) 33.0 g/dL (07/23/17 2:51 AM) MCHC [32.0-36.0 g/dL] 16.0 % *HI* (07/25/17 3:46 AM) 15.9 % *HI* (07/24/17 5:23 AM) 15.7 % *HI* (07/23/17 2:51 AM) RDW [11.5-14.5 %] 9.9 fL (07/25/17 3:46 AM) 9.2 fL (07/24/17 5:23 AM) 9.3 fL (07/23/17 2:51 AM) MPV [7.4-10.4 fL] 246 K/CMM (07/25/17 3:46 AM) 243 K/CMM (07/24/17 5:23 AM) 260 K/CMM (07/23/17 2:51 AM) Platelet [133-450 K/CMM] 41.8 % *LOW* (07/25/17 3:46 AM) 55.3 % (07/24/17 5:23 AM) 51.9 % (07/23/17 2:51 AM) Segs [45.0-75.0 %] 45.5 % *HI* (07/25/17 3:46 AM) 30.5 % (07/24/17 5:23 AM) 35.1 % (07/23/17 2:51 AM) Lymphocytes [20.0-40.0 %] 10.1 % (07/25/17 3:46 AM) 11.8 % (07/24/17 5:23 AM) 11.1 % (07/23/17 2:51 AM) Monocytes [2.0-12.0 %] 2.3 % (07/25/17 3:46 AM) 2.2 % (07/24/17 5:23 AM) 1.7 % (07/23/17 2:51 AM) Eosinophils [0.0-4.0 %] 0.3 % (07/25/17 3:46 AM) 0.2 % (07/24/17 5:23 AM) 0.2 % (07/23/17 2:51 AM) Basophils [0.0-1.0 %] 2.3 K/CMM (07/25/17 3:46 AM) 3.4 K/CMM (07/24/17 5:23 AM) 3.5 K/CMM (07/23/17 2:51 AM) Segs-Bands # [1.5-8.1 K/CMM] 2.5 K/CMM (07/25/17 3:46 AM) 1.9 K/CMM (07/24/17 5:23 AM) 2.3 K/CMM (07/23/17 2:51 AM) Lymphocytes # [1.0-5.5 K/CMM] 0.6 K/CMM (07/25/17 3:46 AM) 0.7 K/CMM (07/24/17 5:23 AM) 0.7 K/CMM (07/23/17 2:51 AM) Monocytes # [0.0-0.8 K/CMM] 0.1 K/CMM (07/25/17 3:46 AM) 0.1 K/CMM (07/24/17 5:23 AM) 0.1 K/CMM (07/23/17 2:51 AM) Eosinophils # [0.0-0.5 K/CMM] 1+ *ABN* (07/24/17 5:23 AM) 1+ *ABN* (07/23/17 2:51 AM) 1+ *ABN* (07/22/17 1:50 PM) Microcyte [None Seen] 12.7 seconds (07/22/17 6:19 PM) PT [12.0-14.7 seconds] 0.95 (07/22/17 6:19 PM) INR [0.85-1.17] 28.2 seconds (07/22/17 6:19 PM) PTT [22.9-35.8 seconds] Immunizations No data available for this section Procedures No data available for this section Social History Social History Type Response Substance Abuse Use: None. Alcohol Never Smoking Status Never smoker; Concerns about tobacco use in household: No; Exposure to Tobacco Smoke None; Cigarette Smoking Last 365 Days No; Reg Smoking Cessation Counseling No entered on: 07/22/17 Assessment and Plan Extracted from: Title: GI consult note Author: Luis Armando Wallace MD Date: 07/25/17 Impression and Plan 17 Y O F with hx of choledocholithasis is s/p ERCP 07/24 and s/p Cholecystectomy 07/25 this hospitalization. Bili 1.2 today, AST/ALT, alk phos trending down. Reviewed labs and discussed with fellow 1. Will sign off, call GI with further questions Extracted from: Title: Consult Note Author: Isaiah Radford MD Date: 07/22/17 Ms. Cortes is a 17-year-old female withno major past medical history exceptpossible gallstones. She was seen here about a month back and was diagnosed to have nonobstructive gallstonesand was recommended to get an outpatient cholecystectomy but she missed her appointment and henceslowly over the last few days she started turning yellow and change in the skin color along with urine color in stool colorso she comes to the ER. Her only complaints right now is jaundice, mild midepigastric pain and some nausea but no vomiting, no fever, no chills. She is alert and oriented. In the ED she is found to have mild transient anemia along with significantly elevated bilirubin to 6.5 with a direct of 4.7from a baseline of normal bilirubin. GI has been consulted for doing an ERCP with a possible concerns for choledocholithiasis. Based on ASGE criteria for role of ERCP in pts with suspected choledocholithiasis - GASTROINTESTINAL ENDOSCOPY Volume 71, No. 1 : 2009 Predictors of choledocholithiasis: Very strong - CBD stone on transabdominal US - Clinical ascending cholangitis - Bilirubin 4 mg/dL Strong - Dilated CBD on US (O6 mm with gallbladder in situ) - Bilirubin level 1.8-4 mg/dL Moderate - Abnormal liver biochemical test other than bilirubin - Age older than 55 y - Clinical gallstone pancreatitis Assigning a likelihood of choledocholithiasis based on clinical predictors - Presence of any very strong predictor --> High Patient met: HIGH predictability Reccs: ERCP - timing to be determined - NO s/s of cholangitis - normal wbc, normal temp, HDS Pt is consented IVF CLD today NPO p MN for possible NON EMERGENT ERCP tomorrow v/s Monday Patient was seen and examined. Plan was discussed with the attending of Record - Dr. Miryam Radford MD Pager: [phone] Gastroenterology & Hepatology Fellow - PGY 5 Thank you for the consultation. Please page or call with questions or concerns. Addendum by I have seen and discussed Ms Sebastian Narvaez's case with GI fellow Dr Radford and I agree Behazin, with his assessment and plan as delineated in his note. Patient is currently tolerating a Ynes clear liquid diet without abdominal pain. Abdominal exam this afternoon was not tender to Irina GOYAL palpation. She is hemodynamically stable. Plan for ERCP tomorrow for suspected on choledocholithiasis. 07/23/2017 14:06 CDT
[2018-06-20 13:58] LABS: BASOPHILS % 0.1 % (0.0-1.0); EOSINOPHILS # (AUTO) 0.2 (0.0-0.4); EOSINOPHILS % 1.6 % (0.0-6.0); HEMATOCRIT 40.2 % (34.2-44.1); HEMOGLOBIN 13.5 g/dL (12.0-16.0); LYMPHOCYTES # (AUTO) 2.3 (1.0-3.2); LYMPHOCYTES % 22.8 % (18.0-39.1); MEAN CORPUSCULAR HEMOGLOBIN 26.8 pg (28-32); MEAN CORPUSCULAR HGB CONC 33.6 g/dL (31-35); MEAN CORPUSCULAR VOLUME 79.9 fL (81-99); MONOCYTES # (AUTO) 0.7 (0.2-0.8); MONOCYTES % 7.1 % (4.4-11.3); NEUTROPHILS # (AUTO) 6.8 (2.1-6.9); NEUTROPHILS % 68.1 % (38.7-80.0); PLATELET COUNT 315 x10e3/uL (140-360); RED BLOOD COUNT 5.03 x10e6/uL (3.6-5.1); RED CELL DISTRIBUTION WIDTH 13.5 % (11.7-14.4)
[2018-06-20 14:11] LABS: ALANINE AMINOTRANSFERASE 40 IU/L (0-55); ALBUMIN 3.7 g/dL (3.5-5.0); ALKALINE PHOSPHATASE 84 IU/L (40-150); BLOOD UREA NITROGEN 8 mg/dL (7-26); BUN/CREATININE RATIO 13 (6-25); CALCIUM 10.1 mg/dL (8.4-10.2); CARBON DIOXIDE 26 mmol/L (22-29); CHLORIDE 105 mmol/L (98-107); CREATININE, SERUM 0.64 mg/dL (0.57-1.11); EST GLOMERULAR FILTRATION RATE > 60 ML/MIN (60-); GLUCOSE 93 mg/dL (74-118); SODIUM 137 mmol/L (136-145)
[2018-06-20 14:17] LABS: BILIRUBIN,URINE NEGATIVE (NEGATIVE); CLARITY,URINE CLEAR (CLEAR); COLOR,URINE YELLOW (YELLOW); KETONES,URINE 1+ (NEGATIVE); LEUKOCYTE ESTERASE ,URINE NEGATIVE (NEGATIVE); NITRITE,URINE NEGATIVE (NEGATIVE); PROTEIN,URINE DIPSTICK NEGATIVE (NEGATIVE); URINE UROBILINOGEN 0.2 mg/dL (0.2 - 1)
[2018-06-20 14:18] LABS: HCG,QUANTITATIVE 7758.18 mIU/mL (0-10)
[2018-06-20 14:38] LABS: BACTERIA,URINE MODERATE /HPF
[2018-06-20 14:39] LABS: EPITHELIAL CELLS,URINE MODERATE /LPF
--- NOTE | 2018-06-20 14:56 | Diagnostic Imaging Report ---
EXAM: US PELVIS OB <14 WEEKS INDICATION: Abdominal pain, query ectopic . COMPARISON: None TECHNIQUE: Transvaginal sonographic images of the pelvis were obtained using manuel scale and color doppler. Transvaginal imaging was medically necessary for more detailed evaluation of the . G 2P1A 0 LMP 05/10/18. Clinical gestational age: 6 weeks. FINDINGS: UTERUS: Size: 7.2 x 5.1 x 6.2 cm Mass: None GESTATIONAL SAC: Normal appearance of intrauterine gestational sac. Small amount of hypoechoic contents adjacent to but not directly abutting the gestational sac likely reflects fluid in the endometrial canal. No definite subchorionic hemorrhage. Mean sac diameter: 9 mm, estimated gestational age of 5 weeks, 3 days. YOLK SAC: Yolk sac measuring 3 mm is present. No pole is visualized. RIGHT OVARY: 3.5 x 2.7 x 2.8 cm No evidence of solid mass. Likely corpus luteum cyst on the right, however the cystic structure was not measured. LEFT OVARY: 1.7 x 1.4 x 1.8 cm. CUL-DE-SAC: No free fluid. IMPRESSION: Intrauterine with gestational sac and yolk sac visualized, and no pole. Estimated gestational age of 5 weeks, 3 days. Small amount of hypoechoic contents near but not abutting the gestational sac likely reflects fluid in the endometrial canal rather than subchorionic hemorrhage. Recommend follow-up beta-HCG and short term followup ultrasound. Signed by: Dr. Macario Clifford MD on 06/20/2018 2:52 PM
== END 2018-06-20 16:16 | disposition home or self-care (01) ==
LOC: ER 13:09
DX: O26.91 Pregnancy related conditions, unspecified, first trimester (principal); R10.30 Lower abdominal pain, unspecified
CPT/HCPCS: 36415; 76817; 80053; 81001; 84702; 85025; 87086; 99284